=== PATIENT | female | born 1995 | race Two or more races ===

== ENCOUNTER 2021-09-23 09:33 | Emergency (ER) | payer OTHER ==
[~2021-09-23] VITALS: Ht 154.9 cm; Wt 45.4 kg
--- NOTE | 2021-09-23 10:02 | NUR ---
PT CAME TO ER C/O ABDOMINAL PAIN, NAUSEA AND VOMITING X 4 DAYS. AAOX4, PULSES 2+ BILATERALLY, SKIN IS WARM AND DRY. VS STABLE. ON MONITOR.
--- NOTE | 2021-09-23 10:03 | NUR ---
TO ER BED 10 AWAITING MD NAQVI
--- NOTE | 2021-09-23 10:42 | NUR ---
REFUSED BLOOD DRAW
[2021-09-23] MEDS ORDERED: ONDA4TAB5 PO (10:46)
--- NOTE | 2021-09-23 10:49 | NUR ---
Patient does not wish to proceed with medical care recommended by Dr. Rios. Patient given information related to possible complications, up to and including , which could occur as a result of leaving the hospital at this time. Patient verbalizes understanding of risks involved due to leaving against medical advice. Patient has signed AMA form.
--- NOTE | 2021-09-23 10:51 | NUR ---
PT ABLE TO WALK IN STEADY GAIT. DISCHARGE INSTRUCTIONS PROVIDED. WRITTEN AND VERBAL AFTER CARE INSTRUCTIONS GIVEN. PT VERBALIZES UNDERSTANDING OF INSTRUCTION.
[2021-09-23 10:59] VITALS: BP 101/74
== END 2021-09-23 10:59 | disposition left against medical advice (07) ==
LOC: ER 09:46
DX: R11.2 Nausea with vomiting, unspecified (principal); R10.30 Lower abdominal pain, unspecified; D64.9 Anemia, unspecified
CPT/HCPCS: 84703-TC